=== PATIENT | female | born 1940 | race Caucasian/White ===

== ENCOUNTER 2018-12-29 17:12 | Inpatient (IN) | payer MEDICARE, OTHER ==
[~2018-12-29] VITALS: Ht 149.9 cm; Wt 56.7 kg
[2018-12-30] MEDS ORDERED: LEVOTHYROXINE SODIUM 50 MCG TABLET PO SCH (07:30)
[2018-12-30] MEDS ORDERED: TEMAZEPAM 7.5 MG CAPSULE PO PRN (09:00)
[2018-12-30] MEDS ORDERED: clonazePAM 0.5 MG TABLET PO PRN (09:00)
[2018-12-30] MEDS ORDERED: BLOOD SUGAR DIAGNOSTIC 1 EACH STRIP IN ONE (09:00)
[2018-12-30] MEDS ORDERED: MAGNESIUM HYDROXIDE 30 ML UDC PO PRN (09:00)
[2018-12-30] MEDS ORDERED: MAG HYDROX/AL HYDROX/SIMETH 30 ML UDC PO PRN (09:00)
[2018-12-30] MEDS ORDERED: FLUO-120 PO (11:12)
[2018-12-30] MEDS ORDERED: OMEG1CAP55 PO (11:12)
[2018-12-30] MEDS ORDERED: NIAC500T2 PO (11:12)
[2018-12-30] MEDS ORDERED: LEVO50TA8 PO (11:12)
[2018-12-30] MEDS ORDERED: RIVA10TA PO (11:12)
[2018-12-30] MEDS ORDERED: AMIO200T4 PO (11:12)
[2018-12-30] MEDS ORDERED: ACET-73 PO (11:12)
[2018-12-30] MEDS ORDERED: DOCU250C14 PO (11:12)
[2018-12-30] MEDS ORDERED: CALC-20 PO (11:12)
[2018-12-30] MEDS ORDERED: ATOR40TA PO (11:12)
--- NOTE | 2018-12-30 13:02 | NUR ---
GPS ADMISSION NOTE: RECEIVED PATIENT FROM [facility]. PATIENT ARRIVED ON THIS UNIT AT 0830 VIA STRETCHER WITH 2 MECHANICAL MANUFACTURING TECHNICIAN. PATIENT ADMITTED ON A 5150 HOLD FOR DTS. PER HOLD PATIENT ATTEMPTED LETHAL OVERDOSE WITH A BOTTLE OF TYLENOL AND WAS STATING "I WANT TO ". PATIENT IS DEPRESSED, ANXIOUS, WITH FLAT AFFECT. PRESENTS INTERMITTENTLY TEARFUL. THE 5150 WAS REVIEWED AND THE DOCUMENTATION IN THE 5150 HOLD APPEARS TO REFLECT THE PRESENTATION OF THE PATIENT. UPON FACE TO FACE ASSESSMENT PATIENT IS CURRENTLY LYING IN BED AWAKE, HAS NO S/S OR COMPLAINTS OF PAIN. PATIENT IS DISPLAYING NO S/S OF APPARENT DISTRESS. PATIENT BREATHING IS UNLABORED WITH EQUAL RISE AND FALL OF THE CHEST. PATIENT IS ALERT AND ORIENTATED X 2 ON ROOM AIR. PATIENT ASSISTED WITH TURING AND REPOSITIONING Q2HR AND PRN FOR COMFORT AND CIRCULATION. PATIENT HAS NO NEEDS AT THIS TIME. PATIENT IS NOTED TO BEING ANXIOUS AND DEPRESSED. PATIENT HAS ACTIVE SUICIDAL IDEATION WITH VAGUE PLAN. STATES THAT SHE WOULD USE A KNIFE IF SHE WAS ABLE TO GO HOME. PATIENT IS NONAMBULATORY OF RECENTLY, LIVES ALONE, AND HAS LITTLE SUPPORT SYSTEM. PATIENT HAS [employer] FOR RELATIVE WHO HAS BEEN REACHED TO BE NOTIFIED OF HER HOSPITALIZATION. PATIENT STATED SHE "WANTS HELP TO KILL MYSELF". PATIENT IS UNDER THE PSYCHIATRIC CARE OF DR. CHIN AND THE MEDICAL CARE OF DR JOEL PATIENT BELONGINGS WERE INVENTORIED AND CHECKED FOR CONTRABAND. PATIENT ADVANCED DIRECTIVES PREFERENCE, IMMUNIZATIONS QUESTIONER, NECESSARY PAPERWORK COMPLETED. PATIENT SIGNED MANY CONSENTS AND REFUSED TO SIGN OTHERS DUE TO HAND TREMORS. SKIN ASSESSMENT IS COMPLETE AND PHOTOS ARE IN CHART. PATIENT HAS BRUISES ON RIGHT KNEE AND LEFT HIP WELL 5 STITCHES IN HER FOREHEAD RELATED TO RECENT FALL. PATIENT ORIENTATED TO ROOM, FLOOR, AND STAFF WITH ALL QUESTIONS ANSWERED. PATIENT EDUCATED ON THE USE OF THE CALL CULVER. PATIENT BED SIDE RAILS ARE UP X 2 FOR SAFETY. PATIENT BED IS LOCKED, LOW AND I WILL CONTINUE TO MONITOR THIS PATIENT Q 15 MIN WITH THE HELP OF STAFF TO MAINTAIN SAFETY.
--- NOTE | 2018-12-30 13:46 | NUR ---
Family Contact: SW met with the pts anshu Carlos ([phone]), who stated that he had arrived from [place] and stated that the pt has been depressed and lives alone with some care. SW stated that the MD may recommend a short term SNF placement before the pt returns to her home and the pts anshu stated that he would like to be updated regarding the discharge plan.
--- NOTE | 2018-12-30 14:56 | NUR ---
SS Group Note: SW did not invite the pt. to today's group activity as pt. appeared agitated laying in bed shouting. SW alerted Nursing staff to ensure patient's safety.
[2018-12-30 16:00] VITALS: BP 134/62
[2018-12-30] MEDS ORDERED: DOCUSATE SODIUM 250 MG CAPSULE PO PRN (17:30)
[2018-12-30 18:22] LABS: CALCIUM, SERUM 8.3 mg/dL (8.5-10.1); CREATININE 1.2 mg/dL (0.6-1.3); POTASSIUM 3.6 mmol/L (3.5-5.1)
[2018-12-30] MEDS: RIVAROXABAN 15 MG TABLET PO SCH (20:16)
[2018-12-30] MEDS: MIRTAZAPINE 15 MG TABLET PO SCH (21:26)
[2018-12-30 21:55] VITALS: BP 113/63
[2018-12-31] MEDS ORDERED: Z GUARD REMEDY 2 OZ OINT TP PRN (04:30)
[2018-12-31 07:34] LABS: BILIRUBIN,TOTAL 0.4 mg/dL (0.2-1.0); CALCIUM, SERUM 8.5 mg/dL (8.5-10.1); CREATININE 1.1 mg/dL (0.6-1.3); POTASSIUM 4.1 mmol/L (3.5-5.1); TOTAL PROTEIN, SERUM 6.7 g/dL (6.4-8.2)
[2018-12-31 07:38] LABS: CHOLESTEROL 167 mg/dL (<200); HDL CHOLESTEROL 67 mg/dL (40-60); LDL 84 mg/dL (0-99); TRIGLYCERIDES 61 mg/dL (30-150)
[2018-12-31 08:00] VITALS: BP 119/71
[2018-12-31] MEDS: AMIODARONE HCL 200 MG TABLET PO SCH (08:25)
[2018-12-31] MEDS: LEVOTHYROXINE SODIUM 50 MCG TABLET PO SCH (08:25)
[2018-12-31] MEDS: ATORVASTATIN 40 MG TABLET PO SCH (08:25)
[2018-12-31] MEDS: CALCIUM CARB 600MG /VIT D 1 EACH TABLET PO SCH ×2 (08:25→16:40)
[2018-12-31] MEDS ORDERED: NIACIN 250 MG TABLET.SA PO SCH (09:00)
--- NOTE | 2018-12-31 15:19 | NUR ---
SS Group Note 12/31/18: SW went to patient's room to invite patient to attend today's support group at 1:00pm regarding Mindfulness being held in the activities room. Patient presented laying on her bed sleeping. SW attempted to wake patient but they were not easily rousable.
[2018-12-31 16:00] VITALS: BP 120/56
--- NOTE | 2018-12-31 16:05 | NUR ---
Initial Discharge Plan: Pt currently resides at her home located at [address] [place] [address]; ([phone]) with a caregiver. Per pt, she would like to return to her home. SW will work with the pt and the MD regarding appropriate discharge planning. SW will form a safe and proper discharge.
[2018-12-31] MEDS: RIVAROXABAN 15 MG TABLET PO SCH (16:35)
[2018-12-31] MEDS ORDERED: RIVAROXABAN 10 MG TABLET PO SCH (17:00)
[2018-12-31 20:13] VITALS: BP 89/55
[2018-12-31] MEDS: MIRTAZAPINE 15 MG TABLET PO SCH (22:36)
[2019-01-01] MEDS: LEVOTHYROXINE SODIUM 50 MCG TABLET PO SCH (07:56)
[2019-01-01 08:00] VITALS: BP 117/68
[2019-01-01] MEDS: AMIODARONE HCL 200 MG TABLET PO SCH (08:00)
[2019-01-01] MEDS: ATORVASTATIN 40 MG TABLET PO SCH (08:00)
[2019-01-01] MEDS: CALCIUM CARB 600MG /VIT D 1 EACH TABLET PO SCH ×2 (08:00→16:45)
[2019-01-01 16:00] VITALS: BP 100/64
[2019-01-01] MEDS: RIVAROXABAN 15 MG TABLET PO SCH (16:45)
[2019-01-01 20:00] VITALS: BP 100/62
[2019-01-01] MEDS: MIRTAZAPINE 15 MG TABLET PO SCH (21:17)
[2019-01-02 07:07] LABS: BASOPHILS % (AUTO) 0.8 % (0.0-2.0); EOSINOPHILS % (AUTO) 0.4 % (0.0-6.0); HEMATOCRIT 40 % (33-45); HEMOGLOBIN 13.5 g/dL (11.5-14.8); LYMPHOCYTES # (AUTO) 0.9 /CMM (0.8-4.8); LYMPHOCYTES % (AUTO) 16.7 % (20.0-44.0); MEAN CORPUSCULAR HGB CONC 34 g/dl (31.0-36.0); MEAN CORPUSCULAR VOLUME 100 fL (82-100); MONOCYTES # (AUTO) 0.5 /CMM (0.1-1.30); MONOCYTES % (AUTO) 8.9 % (2.0-12.0); NEUTROPHILS # (AUTO) 3.8 /CMM (1.8-8.9); NEUTROPHILS % (AUTO) 73.2 % (43.0-81.0); PLATELET COUNT (AUTO) 145 /CMM (150-450); RED BLOOD CELL COUNT(AUTO) 3.98 MIL/uL (4.0-5.2); WHITE BLOOD COUNT (AUTO) 5.2 K/uL (4.3-11.0)
[2019-01-02] MEDS: LEVOTHYROXINE SODIUM 50 MCG TABLET PO SCH (07:50)
[2019-01-02 08:00] VITALS: BP 100/44
[2019-01-02] MEDS: CALCIUM CARB 600MG /VIT D 1 EACH TABLET PO SCH ×2 (08:43→17:24)
[2019-01-02] MEDS: ATORVASTATIN 40 MG TABLET PO SCH (08:43)
[2019-01-02 08:44] LABS: CALCIUM, SERUM 8.7 mg/dL (8.5-10.1); CREATININE 1.1 mg/dL (0.6-1.3); MAGNESIUM 2.1 mg/dL (1.8-2.4); PHOSPHORUS 3.9 mg/dL (2.5-4.9); POTASSIUM 4.1 mmol/L (3.5-5.1)
[2019-01-02] MEDS: AMIODARONE HCL 200 MG TABLET PO SCH (08:44)
[2019-01-02 08:54] LABS: THYROID STIMULATING HORMONE 12.396 uIU/mL (0.358-3.74)
[2019-01-02 16:00] VITALS: BP 105/54
[2019-01-02] MEDS: RIVAROXABAN 15 MG TABLET PO SCH (17:25)
[2019-01-02 20:20] VITALS: BP 110/61
[2019-01-02] MEDS: MIRTAZAPINE 15 MG TABLET PO SCH (21:23)
[2019-01-03 08:00] VITALS: BP 114/62
[2019-01-03] MEDS: AMIODARONE HCL 200 MG TABLET PO SCH (08:11)
[2019-01-03] MEDS: CALCIUM CARB 600MG /VIT D 1 EACH TABLET PO SCH ×2 (08:11→17:12)
[2019-01-03] MEDS: LEVOTHYROXINE SODIUM 50 MCG TABLET PO SCH (08:11)
[2019-01-03] MEDS: ATORVASTATIN 40 MG TABLET PO SCH (08:11)
--- NOTE | 2019-01-03 09:30 | NUR ---
Substance Abuse Intervention: SW conducted a substance abuse intervention with the pt due to her prescription abuse (tylenol).
--- NOTE | 2019-01-03 15:34 | NUR ---
GROUP NOTE: SW assessed pts ability to participate in group therapy discussing "discharge planning." Pt was laying in bed and did not acknowledge SW.
[2019-01-03 16:00] VITALS: BP 108/64
[2019-01-03] MEDS: RIVAROXABAN 15 MG TABLET PO SCH (17:11)
[2019-01-03 20:59] VITALS: BP 91/53
[2019-01-03] MEDS: MIRTAZAPINE 15 MG TABLET PO SCH (21:01)
[2019-01-04 08:00] VITALS: BP 104/58
[2019-01-04] MEDS: LEVOTHYROXINE SODIUM 50 MCG TABLET PO SCH ×2 (08:08→08:21)
[2019-01-04] MEDS: ATORVASTATIN 40 MG TABLET PO SCH (08:21)
[2019-01-04] MEDS: CALCIUM CARB 600MG /VIT D 1 EACH TABLET PO SCH ×2 (08:21→17:02)
[2019-01-04] MEDS: AMIODARONE HCL 200 MG TABLET PO SCH (08:34)
--- NOTE | 2019-01-04 14:37 | NUR ---
Family Contact: FELIPA called the pts Carlos brasher ([phone]), and informed him that the current plan is to send her to a senior care facility and then have her be discharged home with her caregivers. He stated that he will accept the MD recommendations.
--- NOTE | 2019-01-04 14:38 | NUR ---
SNF Referral: FELIPA faxed a referral to [facility] with attention to Yari to the fax number: [phone].
[2019-01-04 16:00] VITALS: BP 115/50
--- NOTE | 2019-01-04 16:08 | NUR ---
SNF Contact: Tamera from [facility] stated that the pt was accepted to their facility.
[2019-01-04] MEDS: RIVAROXABAN 15 MG TABLET PO SCH (16:59)
[2019-01-04 20:26] VITALS: BP 129/54
[2019-01-04] MEDS: MIRTAZAPINE 15 MG TABLET PO SCH (21:06)
[2019-01-05 08:00] VITALS: BP 110/68
[2019-01-05] MEDS: CALCIUM CARB 600MG /VIT D 1 EACH TABLET PO SCH ×2 (08:02→17:09)
[2019-01-05] MEDS: ATORVASTATIN 40 MG TABLET PO SCH (08:02)
[2019-01-05] MEDS: AMIODARONE HCL 200 MG TABLET PO SCH (08:13)
[2019-01-05 16:00] VITALS: BP 100/53
[2019-01-05] MEDS: RIVAROXABAN 15 MG TABLET PO SCH (17:08)
[2019-01-05 20:33] VITALS: BP 93/53
[2019-01-05 21:56] VITALS: BP 112/59
[2019-01-05] MEDS: MIRTAZAPINE 15 MG TABLET PO SCH (21:57)
[2019-01-06] MEDS: LEVOTHYROXINE SODIUM 50 MCG TABLET PO SCH (07:23)
[2019-01-06 08:00] VITALS: BP_SYST 111; BP_SYST 120; BP_DIAS 60; BP_DIAS 67
[2019-01-06] MEDS: ATORVASTATIN 40 MG TABLET PO SCH (08:08)
[2019-01-06] MEDS: CALCIUM CARB 600MG /VIT D 1 EACH TABLET PO SCH ×2 (08:08→16:53)
[2019-01-06] MEDS: AMIODARONE HCL 200 MG TABLET PO SCH (08:08)
--- NOTE | 2019-01-06 09:44 | NUR ---
SNF Contact: FELIPA called Kristopher from [facility] and informed him that the pt does not have a discharge date as of right now and SW was inquiring about whether or not there is a bed available.
--- NOTE | 2019-01-06 15:33 | NUR ---
SS Group Note 01/06/19: SW went to patient's room to invite patient to attend today's support group at 2:00pm regarding what they would like to change as a result of their stay here. Patient presented laying on her bed sleeping. SW attempted to wake pt. However, pt. was not easily roused. FELIPA will invite pt. to attend next SS Group.
--- NOTE | 2019-01-06 16:17 | NUR ---
Family Contact: FELIPA called the pts Carlos brasher ([phone]), and informed him that the pt will be discharged the following day to [facility].
--- NOTE | 2019-01-06 16:20 | NUR ---
SNF Contact: FELIPA called Kristopher from [facility] and informed him that the pt will be discharged tomorrow.
[2019-01-06] MEDS: RIVAROXABAN 15 MG TABLET PO SCH (16:53)
[2019-01-06 20:50] VITALS: BP 95/58
[2019-01-06] MEDS ORDERED: MIRTAZAPINE 15 MG TABLET PO SCH (22:00)
[2019-01-07 08:00] VITALS: BP 118/52
[2019-01-07] MEDS: CALCIUM CARB 600MG /VIT D 1 EACH TABLET PO SCH (08:19)
[2019-01-07] MEDS: ATORVASTATIN 40 MG TABLET PO SCH (08:19)
[2019-01-07] MEDS: LEVOTHYROXINE SODIUM 50 MCG TABLET PO SCH (08:19)
[2019-01-07 08:20] VITALS: BP 118/52
[2019-01-07] MEDS: AMIODARONE HCL 200 MG TABLET PO SCH (08:20)
--- NOTE | 2019-01-07 08:57 | NUR ---
DR. CHIN GAVE AN ORDER TO D/C HOLD AND D/C TO [facility], TO CONTINUE SAME MEDS INCLUDING PRN AND TO FOLLOW UP WITH PSYCH AND MEDICAL DOCTORS.
--- NOTE | 2019-01-07 11:48 | NUR ---
DR. CHIN MADE AWARE OF THE PTS. DISCHARGE TO [facility] AND TO CONTINUE SAME MEDS INCLUDING PRN. Addendum: 01/07/19 at 1150 by ROXANNE ALLEN RN NOT DR. CHIN BUT DR. MANUEL SANCHES.
--- NOTE | 2019-01-07 13:50 | NUR ---
Family Contact: SW called the pts Carlos brasher ([phone]), and informed him that the pt was discharged at 1pm and that he may visit her at the facility.
--- NOTE | 2019-01-07 13:56 | NUR ---
GPS HOME STAGING SPECIALIST NOTE PATIENT IS A 78 FEMALE DISCHARGED TO [facility]. PATIENT IS IN STABLE CONDITION. VSS. NO ACUTE DISTRESS NOTED. NO COMPLAINTS. COMPLIANT WITH MEDICATION MANAGEMENT. COOPERATIVE WITH PLAN OF CARE. PSYCHIATRIC TREATMENT PLANS MET. MEDICAL TREATMENT PLANS DEFERRED FOR CONTINUAL MONITORING. DENIES SI/HI VAH AT THE TIME OF DISCHARGE. SKIN CHECK DONE WITH WOUND PICTURES IN CHART. EDUCATED PATIENT ABOUT AFTERCARE WITH COPY PROVIDED. RETURNED PERSONAL BELONGINGS TO PATIENT. MEDICATIONS RECONCILED WITH ALONG WITH PSYCHIATRIC DISCHARGE ORDERS. DISCHARGE PAPERWORK SIGNED. FOR FOLLOW UP WITH PSYCHIATRIST AND SECRETARY ADMINISTRATIVE ASSISTANT WITHIN 1 WEEK. PATIENT LEFT THE [facility] VIA AMBULANCE. TRIP NUMBER [id number].
--- NOTE | 2019-01-07 14:51 | NUR ---
Discharge Note: Pt was discharged to [facility] (SNF) located at [address] [place] [address]; . Pt was transported via [facility] at 1PM and will be placed in Rm 204B. Kamaljit Velazquez ([phone]), was made aware of the discharge. Upon discharge, the pt appeared to be in a euthymic mood and presented with a calm affect. Pt denied both suicidal and homicidal ideation as well as auditory and visual hallucinations. Pt will be under the care of her psychiatrist, Dr. Turner, located at [address], [place] [address]; and her civil draftsman, Dr. Evens Scanlon, located at [address], [place] [address]; . Pt will continue to address her substance abuse with her treatment team.
== END 2019-01-07 13:05 | DRG 885 ==
LOC: GPS 12-30 08:11
PROVIDERS: ADMIT Psychiatry & Neurology Psychiatry; ATTEND Hospitalist
DX: F33.2 Major depressive disorder, recurrent severe without psychotic features (principal); R45.851 Suicidal ideations; E44.1 Mild protein-calorie malnutrition; F41.9 Anxiety disorder, unspecified; I10 Essential (primary) hypertension; I25.10 Atherosclerotic heart disease of native coronary artery without angina pectoris; E78.5 Hyperlipidemia, unspecified; Z95.0 Presence of cardiac pacemaker; E03.9 Hypothyroidism, unspecified; Z86.73 Personal history of transient ischemic attack (TIA), and cerebral infarction without residual deficits
CPT/HCPCS: 36415; 80048-TC; 80053-TC; 80061-TC; 83735-TC; 84100-TC; 84439-TC; 84443-TC; 85025-TC